=== PATIENT | male | born 1965 | race Caucasian/White ===

== ENCOUNTER 2024-01-11 11:35 | Day surgery (SDC) | payer BC, SELFPAY ==
[2024-01-11 12:50] VITALS: BP 120/83; PULSE 87; RESP 17; TEMP 36.4; O2SAT 99
--- NOTE | 2024-01-11 12:56 | P.HP_ITS ---
History of Present Illness History of Present Illness Date Patient Seen: 01/11/24 Time Patient Seen: 12:56 Chief complaint: Colonoscopy Narrative: Cortez is a 58-year-old man who is here for his first colonoscopy. No family history of colon cancer. [facility] Medical History (Updated 01/11/24 @ 12:57 by Dhaval Roberts MD) Hypertension Social History Smoking Status: Never smoker alcohol intake: current Meds Home Medications and Allergies Home Medications Medication Instructions Recorded Confirmed Type peg 3350-sod sulf,bzruu-wga-ajt 1,000 ml PO DIRECTED #2,000 mL 12/07/23 Rx 178.7-7.3-0.5-1.12-0.9 gram oral soln (Suflave) atenolol 25 mg tablet 25 mg PO DAILY 01/11/24 01/11/24 History Allergies Allergy/AdvReac Type Severity Reaction Status Date / Time No Known Drug Allergies Allergy Verified 01/11/24 12:44 Exam Vital Signs (past 8 hours): - 01/11/24 12:50 Temperature 97.5 F L Pulse Rate 87 Respiratory Rate 17 Blood Pressure 120/83 Pulse Oximetry 99 Oxygen Delivery Method Room Air Oxygen Delivery Method Room Air Const General: healthy appearing Resp Effort & Inspection: normal respiratory effort Assessment & Plan Assessment and plan (1) Colon cancer screening: Status: Acute Plan We reviewed the risks and benefits of colonoscopy for colon cancer screening and he would like to proceed.
[2024-01-11] MEDS: LACTATED RINGERS 1,000 ML 42 ML IV (13:00)
--- NOTE | 2024-01-11 14:16 | PM.OP.COLON ---
Operative Date/Time/Diagnoses Date of procedure: 01/11/24 Time of procedure: 14:16 Pre-op diagnosis: Colon cancer screening Post-op diagnosis: same Procedure & Clinicians Study performed: Colonoscopy Same procedure as scheduled: Yes Surgeon: Dhaval Roberts Procedure Notes Procedure in detail: Surgeon: Dhaval Roberts MD Anesthesia: Hanna Peterson CRNA Procedure: The patient was brought to the endoscopy suite, placed in left lateral decubitus position. The patient was connected to monitoring devices. A time-out was performed. Sedation was administered. Once the patient was adequately sedated, a digital rectal exam was performed and was normal. The scope was then inserted and advanced to the cecum where the appendiceal orifice was identified and photographed. The scope was then slowly withdrawn over greater than 6 minutes. The mucosa was thoroughly inspected. No abnormalities were seen. The scope was retroflexed in the rectum. No abnormalities were seen. The scope was straightened and removed. The patient was awakened and brought to recovery. Scope withdrawal time: 9 minutes Sedation time: 13 minutes EBL: 0 Findings: Normal colon Post-procedure Recommendations: Colonoscopy in 10 years Disposition: PACU
[2024-01-11 14:20] VITALS: BP 100/71; PULSE 76; RESP 16; TEMP 36.2; O2SAT 94
[2024-01-11 14:25] VITALS: BP 107/75; PULSE 76; RESP 16; O2SAT 95
[2024-01-11 14:30] VITALS: BP 123/77; PULSE 79; RESP 16; TEMP 36.2; O2SAT 98
[2024-01-11 14:33] VITALS: BP 120/70; PULSE 77; RESP 16; TEMP 36.2; O2SAT 98
== END 2024-01-11 14:47 | disposition home or self-care (01) ==
PROVIDERS: PCP Physician Assistant; Referring Provider Surgery; Visit Provider Surgery
PROC: 0DJD8ZZ Inspection of Lower Intestinal Tract, Via Natural or Artificial Opening Endoscopic (ICD-10-PCS; CPT 45378; principal; 2024-01-11 12:45)
DX: Z12.11 Encounter for screening for malignant neoplasm of colon (principal)
CPT/HCPCS: 45378; J2704